=== PATIENT | female | born 1955 | race Caucasian/White ===

== ENCOUNTER 2021-11-17 06:34 | Observation (INO) ==
--- NOTE | 2021-11-02 10:13 | PAT Medication Instructions ---
Medication Instructions Date of Service November 02, 2021 Home Medications albuterol sulfate 90 mcg/actuation breath activated powder inhaler,sensor 2 inh inhalation QAM PRN shortness of breath, allergies cetirizine 10 mg tablet (Zyrtec) 10 mg PO QAM cholecalciferol (vitamin D3) 10 mcg (400 unit) tablet (Vitamin D3) 10 mcg PO QAM fluticasone 250 mcg-salmeterol 50 mcg/dose blistr powdr for inhalation (Wixela Inhub) 1 inh inhalation QAM PRN allergy related asthma losartan 50 mg tablet 50 mg PO QAM pantoprazole 40 mg tablet,delayed release 40 mg PO QAM DO NOT take the morning of surgery cetirizine 10 mg tablet (Zyrtec) 10 mg PO QAM cholecalciferol (vitamin D3) 10 mcg (400 unit) tablet (Vitamin D3) 10 mcg PO QAM losartan 50 mg tablet 50 mg PO QAM Take morning of surgery With a small sip of water, OTHERWISE NOTHING TO EAT OR DRINK AFTER MIDNIGHT: albuterol sulfate 90 mcg/actuation breath activated powder inhaler,sensor 2 inh inhalation QAM PRN shortness of breath, allergies (use if needed; please bring rescue inhaler with you to hospital day of surgery if possible) fluticasone 250 mcg-salmeterol 50 mcg/dose blistr powdr for inhalation (Wixela Inhub) 1 inh inhalation QAM PRN allergy related asthma (if needed) pantoprazole 40 mg tablet,delayed release 40 mg PO QAM Take evening before surgery albuterol sulfate 90 mcg/actuation breath activated powder inhaler,sensor 2 inh inhalation QAM PRN shortness of breath, allergies (if needed) Other Notes If you have any questions please call us at [phone] or [phone] or [phone] or [phone]
--- NOTE | 2021-11-03 13:01 | Anesthesiology Consultation ---
Date of Service November 03, 2021 Assessment & Plan (1) Encounter for pre-operative examination: - COVID screening: Per assessment on 11/03/2021: Travel screen negative, no known COVID-19 positive contacts or current COVID-19 related symptoms in past 2 weeks. Pt vaccinated. Surgeon arranging preop COVID testing, scheduled 11/15/2021. Awaiting results. Chart Review Chart Review: Acceptable Risk for Surgery and Patient seen in Pre Admission Testing Teaching & Discussion Pre-Anesthesia Teaching/Discussion Notes: Instructed NPO after midnight before surgery, except medications with 15 cc of water. Medication instructions provided according to the PAT guidelines. History Surgery Operation Date: 11/17/21 09:10 Proposed Procedures p Left Total Knee Replacement - Reji Mcelroy MD Height/Weight Height: 5 ft 5 in Weight: 113.1 kg Allergies Allergy/AdvReac Type Severity Reaction Status Date / Time adhesive Allergy Intermediate skin Verified 11/02/21 08:56 irritation, rash Penicillins Allergy Intermediate Rash Verified 11/02/21 08:56 erythromycin base Allergy Mild Gastrointestinal Verified 11/02/21 08:56 Upset Medications Home Medications Medication Instructions Recorded Confirmed Last Taken albuterol sulfate 90 mcg/actuation 2 inh inhalation QAM PRN shortness 11/02/21 11/02/21 Unknown breath activated powder of breath, allergies inhaler,sensor cetirizine 10 mg tablet (Zyrtec) 10 mg PO QAM 11/02/21 11/02/21 Unknown cholecalciferol (vitamin D3) 10 10 mcg PO QAM 11/02/21 11/02/21 Unknown mcg (400 unit) tablet (Vitamin D3) fluticasone 250 mcg-salmeterol 50 1 inh inhalation QAM PRN allergy 11/02/21 11/02/21 Unknown mcg/dose blistr powdr for related asthma inhalation (Wixela Inhub) losartan 50 mg tablet 50 mg PO QAM 11/02/21 11/02/21 Unknown pantoprazole 40 mg tablet,delayed 40 mg PO QAM 11/02/21 11/02/21 Unknown release Past Medical History Medical History (Updated 11/03/21 @ 13:51 by Trista Haider PA-C) Asthma "allergy related, prn inhalers"-last rescue inhaler use past few days; resolved Degenerative joint disease GERD (gastroesophageal reflux disease) controlled, stable per pt Hiatal hernia History of anesthesia reaction "a long time ago, I used to get nausea after, but haven't had it with any recent surgeries" denies needing scop patch in past History of blood transfusion with tubal Hypertension controlled, stable per pt; (pt reports chronic white coat hypertension, BP often 130s systolically) Migraine "ocular migraines lately"; most recent 2 weeks ago; denies change or worsening Sleep apnea cpap-compliant Patient denies h/o stroke, seizures, heart attack, heart failure, DM, blood clots or blood transfusions. Exercise / Class Metabolic Activity II 4-5 Yardwork/Stairs/Walk up hill (occ SOB if significant pain, otherwise denies any SOB or chest discomfort with 1 FOS) Past Surgical History Surgical History History of dilatation and curettage History of esophagogastroduodenoscopy (EGD) Hx of cholecystectomy "tried lapaproscopic, ended up opening with a small incision" Hx of colonoscopy Hx of laparoscopy x2; ectopic -removal fallop. tube, 6 mos later, tubal ligation Past Anesthesia History No Hx of Anesthesia Complications and No Family Hx of Anesthesia Complications History of PONV No Hx of Motion Sickness and History of PONV Social History Smoking Status: Never smoker Do You Dip or Chew Tobacco: No Hx Alcohol Use: Yes Alcohol type: beer alcohol intake frequency: holidays/special occasions only Hx Substance Use: No substance use type: does not use Review of Systems Patient denies chest pain, shortness of breath, dyspnea on exertion, fever, chills, cough, wheezing, or palpitations. Physical Exam Vital Signs Vitals BP 160/84 (pt reports chronic white coat hypertension, BP often 130s systolically) P 71 TEMP 98.4 SP02 98% on RA RESP 17 Physical Full cervical extension range of motion without pain TMD 3.5 finger breadths Mallampati Score 3 Dentition: intact, several crowns-one right upper front; denies chipped or loose teeth, implants or bridges Lungs: normal respiratory effort. Clear throughout to auscultation, no adventitious breath sounds Cardiac: regular rate and rhythm, no murmurs noted Carotid arteries: negative bruit bilat Lab Results Anesthesia Preop Results Results Anesthesia Widget: WBC 6.61 K/ul (4.8-10.8) 11/03/21 Hgb 13.5 g/dl (12.0-16.0) 11/03/21 Hct 42.0 % (34.1-44.9) 11/03/21 Plt 246 K/uL (130-400) 11/03/21 Na 140 mmol/L (136-145) 11/03/21 K 4.3 mmol/L (3.5-5.1) 11/03/21 Cl 105 mmol/L (98-107) 11/03/21 CO2 29 mmol/L (21-32) 11/03/21 BUN 14 mg/dl (6-23) 11/03/21 Creat 0.96 mg/dl (0.6-1.2) 11/03/21 Glucose Level 94 mg/dl (70-99(Fasting)) 11/03/21 PT 10.3 Seconds (9.0-12.0) 11/03/21 PTT 24.8 Seconds (21.0-31.0) 11/03/21 INR 1.0 (0.9-1.1) 11/03/21 Blood Type A Positive 11/03/21 Antibody Screen NEGATIVE 11/03/21 Testing Electrocardiogram Date: 11/03/21 NSR, rate 66 bpm Chest X-Ray Date: 11/03/21 No acute cardiopulmonary disease.
[~2021-11-17 06:34] MED LIST: ACETAMINOPHEN 500 MG TAB PO SCH; BUPIVACAINE 0.5 % 5 MG/1 ML PF 10ML VIAL ONE; BUPIVACAINE LIPOSOME/PF 266 MG, BUPIVACAINE/EPINEPHRINE 50 ML, SODIUM CHLORIDE 0.9% 30 ... INFIL SCH; CeleBREX 200 MG CAP PO SCH; FAMOTIDINE 20 MG TAB PO SCH; LR 500ML BOLUS, THEN 15ML/HR IV SCH; LR 60ML/HR IV SCH; METOCLOPRAMIDE HCL 10 MG TABLET PO SCH; ROPIVACAINE 0.5% 5 MG/ML 30 ML VIAL ONE; Scopolamine 1 MG TDSY TD SCH; TRANEXAMIC ACID 1,000 MG **IV Pre-op IV SCH; ceFAZolin 2000MG 2,000 MG/15 ML SYR IV SCH
--- NOTE | 2021-11-17 07:00 | History & Physical Bridge Note ---
Date of Service November 17, 2021 History & Physical Bridge Note I have examined the patient, reviewed the History & Physical and in the interval since the performance of the History & Physical I have noted the following changes of clinical significance: no changes noted
[2021-11-17] MEDS ORDERED: MIDAZOLAM HCL 1 MG/ML 2ML VIAL ONE ×2 (07:39)
[2021-11-17] MEDS ORDERED: fentaNYL citrate 100 MCG/2 ML VIAL ONE (07:39)
[2021-11-17] MEDS ORDERED: ePHEDrine sulfate 50 MG/ML AMP IV PRN (07:57)
[2021-11-17] MEDS ORDERED: ONDANSETRON INJ 2 MG/ML 2 ML VIAL IV PRN ×2 (07:57→11:17)
[2021-11-17] MEDS ORDERED: PROMETHAZINE HCL 6.25 MG in SODIUM CHLORIDE 0.9% 50 ML IV PRN (07:57)
[2021-11-17] MEDS ORDERED: ATROPINE SULFATE 0.1 MG/ML 10ML SYR IV PRN (07:57)
[2021-11-17] MEDS ORDERED: KETOROLAC 30 MG/ML VIAL IV PRN (07:57)
[2021-11-17] MEDS ORDERED: HYDROmorphone INJ 1 MG/ML SYRINGE IV PRN (07:57)
[2021-11-17] MEDS ORDERED: BUPIVACAINE LIPOSOME 1.3% 266 MG/20 ML VIAL ONE (08:11)
[2021-11-17] MEDS ORDERED: SODIUM CHLORIDE 0.9% PF 50 ML VIAL ONE (08:11)
[2021-11-17] MEDS ORDERED: BUPIVACAINE/EPINEPHRINE 0.25% 1:200,000 30 ML VIAL ONE (08:11)
[2021-11-17] MEDS ORDERED: DEXAMETHASONE SOD INJ 4 MG/ML VIAL ONE (08:41)
[2021-11-17] MEDS ORDERED: ONDANSETRON INJ 2 MG/ML 2 ML VIAL ONE (08:41)
[2021-11-17] MEDS ORDERED: PROPOFOL IV EMULSION 10 MG/ML 20 ML VIAL IV ONE ×3 (08:41→09:29)
[2021-11-17] MEDS ORDERED: LIDOCAINE 2% MPF LOCAL 5 ML VIAL INFIL ONE (08:41)
--- NOTE | 2021-11-17 10:32 | Operative Report ---
PG Post Operative Report Pre & Post Diagnosis Operation Date: 11/17/21 08:10 Pre-Op Diagnosis: Left Knee Osteoarthritis Post-Op Diagnosis: Left Knee Osteoarthritis I identified the patient and participated in the time-out.: Yes Procedure Operation Date: 11/17/21 08:10 Actual Procedures p Left Total Knee Arthroplasty, Cemented(Left) - Reji Mcelroy MD Surgeon Reji Mcelroy MD [employer] Khari Johnson PA-C Estimated Blood Loss 50 Findings Consistent with Post-Op Diagnosis Operative findings were advanced left knee DJD. Extensive grade 4 [id number] disease the medial compartment with eburnation medial femoral condyle medial tibial plateau. She had some spotty grade 4 changes of the patellofemoral joint as well as the lateral compartment. Specimens Left knee sent for pathology Drains None Anesthesia Type Spinal MAC Complications none Disposition Accompanied Patient To Recovery: No Indications Patient is a 66-year-old female has a long history of left knee pain discomfort describes gotten worse over time. Does a history of knee arthroscopy several years ago done and the locking of an area. Provided very temporary relief. She been through extensive conservative treatment over the years which have become less successful. She elected proceed with left total knee arthroplasty. Description of Procedure Operative implants consist of: 1 Biomet Vanguard size 65 left posterior stabilized femoral component. 2. Biomet size 71 tibial tray. 3. 10 mm posterior stabilized polyethylene insert. 4. 31 x 8 all Paller patella. The patient was taken to the operating, identified, placed on the operating table supine position protectors were properly padded. IV antibiotics tried by anesthesia team. A spinal anesthetic and abductor canal block had provided holding area. Tucker catheter was placed in sterile fashion. Left atrium was then placed in the left lower extremities and prepped and draped in usual sterile fashion. Left leg was elevated exsanguinated with use of an Esmarch in terms playset 300 mmHg. An anterior posterior left knee was then performed to longitudinal incision centered over the patella. Sharp dissection was carried through subcutaneous tissue down the extensor mechanism. A medial parapatellar arthrotomy incision was made. Some subperiosteal dissection was carried out medially. The fat pad was dissected from Neath patella tendon. The lateral patellofemoral ligament was released. Patella subluxated laterally and the knee was flexed. The osteophytes were taken off distal femur. ACL and PCL then released from distal femur the tibia subluxated anteriorly. The external tibial alignment jig was then placed in the interface the tibia and adjusted 14 mm medially. Proximal tibial cut was removed approximately 2 mm of bone from most deficient aspect medial tibial plateau. Some osteophytes taken off posterior medially. Tibia sized to a size 71. Attention drawn the femur. The distal femur stem with a sharp drop with intramedullary canal was suction. A left 5 degree valgus cutting guide was placed. Distal femoral cutting block was pinned in place. Distal femoral cut was made to take an additional 3 mm of bone off distal femur. The femur was then sized to a size 65. The AP cutting block was pinned parallel to the epicondylar axis which was 4 degrees of external rotation. Anterior cut, anterior chamfer, posterior cut, posterior chamfer cuts were made. The box cutting guide was placed in just slight lateral box cut was made. The knee was flexed. The remnants of the medial and lateral menisci were excised. The osteophytes taken off the posterior aspect the femur. Trial femoral component was placed. The tibial tray was pinned in maximum external rotation and the drill and stem punch were used to create defect in proximal to tibia for the tibial tray. Knee was then trialed and the 10 mm insert fit most appropriately. Attention drawn the patella. The patella was cleaned of all soft tissue. Patella thickness measured 20 mm in thickness was cut down to 13. Was sized to a size 31 patella. The lug holes were drilled for 31 patella. The lateral osteophyte was removed. Patella was placed and the knee was taken through range of motion and. The patella tracked nicely with no thumbs test. Attention drawn to placing permanent components. Nupathe all trial components were removed. Bone plug was placed into the distal femur limit blood loss. A double batch Palacos G cement was mixed. Biomet Vanguard size 65 left posterior stabilized femoral component, size 71 tibial tray, a 10 mm posterior stabilized polyethylene insert, and a 31 x 8 all Paller patella then cemented in place. New spreadout into full extension until cement hardened. Final cement check was then performed. Pericapsular tissues were injected with total 100 cc of combination of 20 cc of Exparel, 30 cc normal saline, 50 cc of quarter percent Marcaine with epinephrine. Patient did receive 1 g tranexamic acid. The tourniquet was let down for final tourniquet time 59 minutes. Hemostasis reduced electrocautery. Extensor mechanism then closed with combination 1 PDS suture #1 Vicryl suture in joiuuh-yy-yyeid fashion to extensor mechanism checked found to be intact and subcutaneous tissues then closed with 2 Dexon suture in a buried interrupted fashion skin was closed skin jeremiah. Leg was then cleaned and dried a sterile dressing both Xeroform, 4 x 4's, sterile cast padding, Yasmany bandage were applied. Patient then transferred to the recovery room in stable condition. The patient tolerated the procedure well and there were no complications. Khari Johnson, my physician assistant chief of police, was present for the entire procedure. His assistance was essential and required for appropriate patient positioning, prepping and draping, surgical exposure, performing the technical details of the operation, placement the implants, closure of the wound, and placement of the sterile bandage. I attest to the content of the Intraoperative Record and any orders documented therein. Any exceptions are noted below.
[2021-11-17] MEDS ORDERED: HYDROmorphone INJ 0.5 MG/0.5 ML SYR IV PRN (11:17)
[2021-11-17] MEDS ORDERED: NALOXONE HCL 0.4 MG/1 ML VIAL/CARP IV PRN (11:17)
[2021-11-17] MEDS ORDERED: METOCLOPRAMIDE HCL INJ 5 MG/ML 2 ML VIAL IV PRN (11:17)
[2021-11-17] MEDS ORDERED: bisacodyL 10 MG SUPP PR PRN (11:17)
[2021-11-17] MEDS ORDERED: ALUMINUM/MAGNESIUM SUSP 30 ML UDC PO PRN (11:17)
[2021-11-17] MEDS ORDERED: MAGNESIUM HYDROXIDE SUSP 30 ML UDC PO PRN (11:17)
--- NOTE | 2021-11-17 11:35 | XRay Report ---
XR knee LT 1 or 2V routine CLINICAL HISTORY: Surgical Post Op TECHNIQUE: 2 views of the left knee were obtained. Comparison: None available at the time of this dictation. FINDINGS: Patient is status post total knee arthroplasty with expected postsurgical changes including soft tiss ue swelling and subcutaneous emphysema. No periarticular lucency or hardware fracture is seen. IMPRESSION: No evidence of acute osseous injury. ACT 112: Negative or not required by law. Electronically signed by: Stevie Poole M.D. 11/17/2021 11:34 AM
[2021-11-17] MEDS ORDERED: ALBUTEROL HFA 8 GM INHALER INH PRN (11:40)
--- NOTE | 2021-11-17 11:45 | Anesthesiology Progress Note ---
Date of Service November 17, 2021 Anesthesia Post Procedure Vital Signs Vital Signs: Temp Pulse Pulse Resp BP Pulse Ox O2 Del Method 11/17/21 11:30 75 20 135/71 94 Room Air 11/17/21 11:15 67 20 136/78 95 Room Air 11/17/21 11:05 36.6 C 63 17 133/78 97 Room Air 11/17/21 10:55 66 16 125/78 98 Room Air 11/17/21 10:45 72 20 135/69 97 Oxymask 11/17/21 10:35 71 18 129/62 98 Oxymask 11/17/21 10:25 36.7 C 76 16 118/62 98 Oxymask 11/17/21 07:08 36.5 C 76 20 182/82 H 98 11/17/21 06:57 Room Air O2 Flow Rate 11/17/21 11:30 11/17/21 11:15 11/17/21 11:05 11/17/21 10:55 11/17/21 10:45 5 11/17/21 10:35 9 11/17/21 10:25 9 11/17/21 07:08 11/17/21 06:57 Transfer of Care Handoff Completed per policy Notes Mental Status: alert / awake / arousable Patient Amnestic to Procedure: Yes Nausea / Vomiting: adequately controlled Pain: adequately controlled Airway Patency, RR, SpO2: stable & adequate BP & HR: stable & adequate Hydration State: stable & adequate Anesthetic Complications: no major complications apparent
[2021-11-17] MEDS: SODIUM CHLORIDE 0.9% 1000ML 1,000 ML IV SCH (12:56)
[2021-11-17] MEDS ORDERED: FLUTICASONE/VILANTEROL 200/25MCG 14 PUFFS/INHALER INH PRN (13:50)
[2021-11-17] MEDS: ACETAMINOPHEN 500 MG TAB PO SCH ×2 (13:52→21:25)
[2021-11-17] MEDS: Scopolamine CHECK PATCH PLACEMENT SCH (15:19)
[2021-11-17] MEDS: oxyCODONE HCL IR 5 MG TAB (IMMEDIATE RELEASE) PO PRN (15:20)
[2021-11-17] MEDS ORDERED: TRANEXAMIC ACID / 0.7% NACL 1,000 MG/100 ML BAG IV SCH (16:30)
[2021-11-17] MEDS: ASCORBIC ACID 500 MG TAB PO SCH (16:51)
[2021-11-17] MEDS: ceFAZolin 2000MG 2,000 MG/15 ML SYR IV SCH (16:51)
[2021-11-17] MEDS: KETOROLAC TROMETHAMINE 15 MG/ML VIAL IV SCH (17:48)
[2021-11-17] MEDS: TAPENTADOL HCL ER 50 MG TABCR PO SCH (20:19)
[2021-11-17] MEDS: DOCUSATE SODIUM 100 MG CAP PO SCH (20:21)
[2021-11-17] MEDS: ASPIRIN 81 MG ECTAB PO SCH (20:21)
[2021-11-17] MEDS ORDERED: SENNA 8.6 MG TAB PO SCH (21:00)
[2021-11-18] MEDS: SODIUM CHLORIDE 0.9% 1000ML 1,000 ML IV SCH (00:23)
[2021-11-18] MEDS: ceFAZolin 2000MG 2,000 MG/15 ML SYR IV SCH (00:28)
[2021-11-18] MEDS: Scopolamine CHECK PATCH PLACEMENT SCH ×2 (00:28→08:38)
[2021-11-18] MEDS: KETOROLAC TROMETHAMINE 15 MG/ML VIAL IV SCH ×3 (00:29→12:09)
[2021-11-18] MEDS: ACETAMINOPHEN 500 MG TAB PO SCH (05:21)
[2021-11-18] MEDS: oxyCODONE HCL IR 5 MG TAB (IMMEDIATE RELEASE) PO PRN (06:00)
[2021-11-18 06:23] LABS: Hematocrit (blood only) 36.8 % (34.1-44.9); Hemoglobin 11.8 g/dl (12.0-16.0); Mean Corpuscular Hgb Conc 32.1 g/dL (32.0-36.0); Mean Corpuscular Volume 87.4 fL (80.0-100.0); Mean Platelet Volume 9.8 fL (9.4-12.3); Platelet Count 239 K/uL (130-400); RDW Coefficient of Variation 13.3 % (11.5-14.5); Red Blood Count 4.21 M/uL (3.93-5.22); White Blood Count 12.01 K/ul (4.8-10.8)
[2021-11-18 06:57] LABS: BUN Creatinine Ratio 19.4 (10-20); Calcium 8.7 mg/dl (8.5-10.1); Creatinine Clr Calc Pharmacy 73.3 ml/min; Est GFR (African American) 65.1 ml/min; Est GFR (Non-African American) 56.2 ml/min; Potassium 4.3 mmol/L (3.5-5.1)
[2021-11-18] MEDS ORDERED: dexAMETHasone 10 MG in SYRINGE 0 ML IV SCH (08:00)
--- NOTE | 2021-11-18 08:02 | Progress Notes ---
DATE OF SERVICE: 11/18/2021. SUBJECTIVE: A 66-year-old female, postoperative day 1 from the left total knee replacement. She is doing pretty well. Really did not get much sleep last night. Pain has been reasonably controlled. No chest pain or shortness of breath. Not feeling dizzy or lightheaded. OBJECTIVE: VITAL SIGNS: Temperature 36.5. Vital signs are stable. PHYSICAL EXAMINATION: GENERAL: Shows a pleasant middle-aged female. She is sitting up in bed and looks pretty comfortable . LUNGS: Clear to auscultation. HEART: Regular rate and rhythm. ABDOMEN: Soft, nontender, nondistended. EXTREMITIES: Grossly neurovascularly intact, except as follows: Examination of the left leg reveals the dressing to be clean, dry and intact. Leg is well aligned. She can dorsiflex and plantarflex her foot appropriately. She is neurologically intact. LABORATORY DATA: Hemoglobin 11.8. Hematocrit 36.8. Electrolytes are stable. ASSESSMENT: A 66-year-old female, postoperative day 1 from left knee replacement, doing reasonably w ell. She is hoping to get out of the hospital. Pain is controlled. She is neurologically intact. PLAN: 1. DVT prophylaxis includes thigh-high TEDs, SCDs, and aspirin twice a day. 2. PT, OT, weightbear as tolerated. Left total knee protocol. 3. Pain control, doing okay with current pain regimen. 4. Disposition: Plan to discharge to home with some home health once adequately recovered and getti ng around safely. Job ID: [id number]
[2021-11-18] MEDS: DOCUSATE SODIUM 100 MG CAP PO SCH (08:39)
[2021-11-18] MEDS: ASPIRIN 81 MG ECTAB PO SCH (08:39)
[2021-11-18] MEDS: ASCORBIC ACID 500 MG TAB PO SCH (08:39)
[2021-11-18] MEDS: TAPENTADOL HCL ER 50 MG TABCR PO SCH (08:44)
[2021-11-18] MEDS ORDERED: CETIRIZINE HCL 10 MG TABLET PO SCH (09:00)
[2021-11-18] MEDS ORDERED: CHOLECALCIFEROL 400 UNITS 10 MCG TAB PO SCH (09:00)
[2021-11-18] MEDS ORDERED: MULTIVITAMIN TAB PO SCH (09:00)
[2021-11-18] MEDS ORDERED: LOSARTAN POTASSIUM 50 MG TAB PO SCH (09:00)
--- NOTE | 2021-11-21 12:16 | Discharge Summary ---
Date of Service November 21, 2021 Discharge Data Procedures Performed Operation Date: 11/17/21 08:10 Actual Procedures p Left Total Knee Arthroplasty, Cemented(Left) - Reji Mcelroy MD Hospital Course (1) Status post total left knee replacement: This is a 66 year old patient admitted on 11/17/21 and underwent total knee arthroplasty. She tolerated the procedure well and there were no complications. Transferred to the PACU post op and later to the orthopedic floor for further care. She was given ancef for antibiotic prophylaxis. She was also given QI stockings, SCDs, and aspirin for DVT prophylaxis. Hemoglobin, hematocrit, and vital signs were monitored during her hospital stay and remained stable. Did not require any blood transfusions. There were no complications during her hospital stay. By post op day #1 the patient was tolerating a regular diet, pain was reasonably controlled with oral pain medicine, and she was participating in physical therapy. On post op day #1 the patient was discharged home and set up with home health care. She was given printed discharge instructions including prescriptions for extra strength tylenol, aspirin, toradol, zofran, senokot, and oxycodone. Continue physical therapy, weight bearing as tolerated. Continue QI stockings. Follow up approximately 2 weeks post op or sooner if there are problems or concerns. Coding Level of Care Code None Diagnoses Status post total left knee replacement Z96.652
== END 2021-11-18 13:15 | disposition home health service (06) ==
LOC: PACUINP 06:34 → ASU 06:34 → 3E 14:47

== ENCOUNTER 2023-07-14 05:08 | Observation (INO) ==
--- NOTE | 2023-06-08 12:21 | PAT Medication Instructions ---
Medication Instructions Date of Service June 08, 2023 Home Medications Medication Instructions Recorded Amina Xiao #1 ea 11/05/21 albuterol sulfate 90 mcg/actuation breath activated powder inhaler,sensor 2 inh inhalation QAM PRN shortness of breath, allergies cetirizine 10 mg tablet (Zyrtec) 10 mg PO QAM cholecalciferol (vitamin D3) 10 mcg (400 unit) tablet (Vitamin D3) 25 mcg PO QAM fluticasone 250 mcg-salmeterol 50 mcg/dose blistr powdr for inhalation (Wixela Inhub) 1 inh inhalation QAM PRN allergy related asthma losartan 50 mg tablet 50 mg PO QAM pantoprazole 40 mg tablet,delayed release 20 mg PO QAM acetaminophen 500 mg capsule 1,000 mg PO TID PRN Pain magnesium 200 mg tablet 200 mg PO QPM DO NOT take the morning of surgery cetirizine 10 mg tablet (Zyrtec) 10 mg PO QAM cholecalciferol (vitamin D3) 10 mcg (400 unit) tablet (Vitamin D3) 25 mcg PO QAM losartan 50 mg tablet 50 mg PO QAM Take morning of surgery With a small sip of water, OTHERWISE NOTHING TO EAT OR DRINK AFTER MIDNIGHT: albuterol sulfate 90 mcg/actuation breath activated powder inhaler,sensor 2 inh inhalation QAM PRN shortness of breath, allergies (use if needed; please bring rescue inhaler with you to hospital day of surgery if possible) fluticasone 250 mcg-salmeterol 50 mcg/dose blistr powdr for inhalation (Wixela Inhub) 1 inh inhalation QAM PRN allergy related asthma (if needed) pantoprazole 40 mg tablet,delayed release 20 mg PO QAM acetaminophen 500 mg capsule 1,000 mg PO TID PRN Pain (if needed) Take evening before surgery albuterol sulfate 90 mcg/actuation breath activated powder inhaler,sensor 2 inh inhalation QAM PRN shortness of breath, allergies (if needed) acetaminophen 500 mg capsule 1,000 mg PO TID PRN Pain (if needed) magnesium 200 mg tablet 200 mg PO QPM Other Notes If you have any questions please call us at [phone] or [phone] or [phone] or [phone]
--- NOTE | 2023-06-16 10:58 | Anesthesiology Consultation ---
Date of Service June 16, 2023 Assessment & Plan (1) Encounter for pre-operative examination: - Infectious disease screening: Per assessment on 06/16/23: No known infectious disease contacts or current infectious disease symptoms. No noted recent Covid positive test result. - Outpatient joint assessment: Pt currently scheduled for inpatient pathway. If surgeon requests review for outpatient joint pathway, patient is not recommended candidate for outpatient joint program from anesthesia standpoint based upon available information. - S/P Left TKA (11/17/21): SAB at L3-4 (x1 attempt) + regional at [facility] Chart Review Chart Review: Acceptable Risk for Surgery and Patient seen in Pre Admission Testing Teaching & Discussion Pre-Anesthesia Teaching/Discussion Notes: Instructed NPO after midnight before surgery,except medications with 15 cc of water. Medication instructions provided according to the PAT guidelines. History Surgery Operation Date: 07/14/23 07:00 Proposed Procedures p Right Total Knee Arthroplasty - Reji Mcelroy MD Height/Weight Height: 5 ft 6 in Weight: 119.4 kg Allergies Allergy/AdvReac Type Severity Reaction Status Date / Time adhesive Allergy Intermediate Skin Verified 06/14/23 11:55 irritation, rash Penicillins Allergy Intermediate Rash Verified 06/08/23 07:58 erythromycin base Allergy Mild Gastrointestinal Verified 06/08/23 07:58 Upset Medications Home Medications Medication Instructions Recorded Confirmed Last Taken albuterol sulfate 90 mcg/actuation 2 inh inhalation QAM PRN shortness 11/02/21 06/08/23 Unknown breath activated powder of breath, allergies inhaler,sensor cetirizine 10 mg tablet (Zyrtec) 10 mg PO QAM 11/02/21 06/08/23 11/16/21 06:30 cholecalciferol (vitamin D3) 10 25 mcg PO QAM 11/02/21 06/08/23 11/16/21 06:30 mcg (400 unit) tablet (Vitamin D3) fluticasone 250 mcg-salmeterol 50 1 inh inhalation QAM PRN allergy 11/02/21 06/08/23 11/17/21 04:00 mcg/dose blistr powdr for related asthma inhalation (Wixela Inhub) losartan 50 mg tablet 50 mg PO QAM 11/02/21 06/08/23 11/16/21 06:30 pantoprazole 40 mg tablet,delayed 20 mg PO QAM 0706/08/23 11/17/21 04:00 release Wheeled Walker #1 ea 11/05/21 03/10/22 Unknown acetaminophen 500 mg capsule 1,000 mg PO TID PRN Pain 06/08/23 06/08/23 Unknown magnesium 200 mg tablet 200 mg PO QPM 06/08/23 06/08/23 Unknown Past Medical History Medical History Asthma Degenerative joint disease GERD (gastroesophageal reflux disease) Hiatal hernia Hypertension Morbid obesity Sleep apnea CPAP (compliant) Exercise / Class Metabolic Activity III < 4 Walking/Shop/Light housework Past Surgical History Surgical History History of anesthesia reaction Post-op nausea with remote surgeries, no issues more recently History of arthroscopy of left knee 2014 History of dilatation and curettage History of esophagogastroduodenoscopy (EGD) Hx of cholecystectomy Hx of colonoscopy Hx of laparoscopy x2; ectopic -removal fallop. tube, 6 mos later, tubal ligation Hx of tubal ligation Status post total left knee replacement Left TKA (11/17/21): SAB at L3-4 (x1 attempt) + regional at [facility] Past Anesthesia History No Hx of Anesthesia Complications and No Family Hx of Anesthesia Complications History of PONV No Hx of Motion Sickness and History of PONV (Post-op nausea with remote surgeries, no issues more recently ) Social History Smoking Status: Never smoker Do You Dip or Chew Tobacco: No Hx Alcohol Use: Yes Alcohol type: beer alcohol intake frequency: a few times a week Hx Substance Use: No substance use type: does not use Review of Systems Patient denies chest pain, shortness of breath, dyspnea on exertion, fever, chills, cough, wheezing, palpitations. Physical Exam Vital Signs BP 152/72 P 67 TEMP 97.9 SP02 99%RA RESP 18 Physical Full cervical extension range of motion. Full TMJ range of motion. TMD 3.5 finger breaths Mallampati Score 3 Dentition: intact, + crowns (molars) Lungs: clear throughout to auscultation Cardiac: regular rate and rhythm, no murmurs noted Spine: normal Carotid arteries: negative bruit Extremities: no LE edema Short, thick neck Lab Results Anesthesia Preop Results Results Anesthesia Widget: WBC 6.84 K/ul (4.8-10.8) 06/16/23 Hgb 14.2 g/dl (12.0-16.0) 06/16/23 Hct 45.2 % (37.0-47.0) 06/16/23 Plt 271 K/uL (130-400) 06/16/23 Na 140 mmol/L (136-145) 06/16/23 K 4.5 mmol/L (3.5-5.1) 06/16/23 Cl 105 mmol/L (98-107) 06/16/23 CO2 30 mmol/L (21-32) 06/16/23 BUN 13 mg/dl (6-23) 06/16/23 Creat 0.80 mg/dl (0.6-1.2) 06/16/23 Glucose Level 85 mg/dl (70-99(Fasting)) 06/16/23 PT 10.1 Seconds (9.0-12.0) 06/16/23 PTT 26 Seconds (21-31) 06/16/23 INR 0.9 (0.9-1.1) 06/16/23 Blood Type A Positive 06/16/23 Antibody Screen NEGATIVE 06/16/23 Testing Electrocardiogram Date: 06/16/23 NSR at 72bpm. "Normal ECG" Chest X-Ray Date: 06/16/23 FINDINGS: Cardiac mediastinal and hilar silhouettes are within normal limits. Spondylitic spurring of the spine. Cholecystectomy. No pneumothorax, pleural effusion, airspace consolidation or pulmonary edema. IMPRESSION: No acute process.
[2023-07-14] MEDS: Scopolamine 1 MG TDSY TD SCH (05:55)
[2023-07-14] MEDS: LR 500ML BOLUS, THEN 15ML/HR IV SCH (05:55)
[2023-07-14] MEDS: ACETAMINOPHEN 500 MG TAB PO SCH ×2 (05:56→14:48)
[2023-07-14] MEDS: dexAMETHasone**PF** 10 MG/ML VIAL IV SCH (05:57)
[2023-07-14] MEDS: CeleBREX 200 MG CAP PO SCH (05:57)
[2023-07-14] MEDS: METOCLOPRAMIDE HCL 10 MG TABLET PO SCH (05:57)
[2023-07-14] MEDS: FAMOTIDINE 20 MG TAB PO SCH (05:57)
[2023-07-14] MEDS: LR 60ML/HR IV SCH (05:57)
[2023-07-14] MEDS ORDERED: ROPIVACAINE 0.5% 5 MG/ML 30 ML VIAL ONE (06:17)
[2023-07-14] MEDS ORDERED: BUPIVACAINE 0.5 % 5 MG/1 ML PF 10ML VIAL ONE (06:17)
[2023-07-14] MEDS ORDERED: PROPOFOL IV EMULSION 10 MG/ML 100 ML VIAL IV ONE (06:25)
[2023-07-14] MEDS ORDERED: ONDANSETRON INJ 2 MG/ML 2 ML VIAL ONE ×2 (06:27→06:31)
[2023-07-14] MEDS ORDERED: MIDAZOLAM HCL 1 MG/ML 2ML VIAL ONE (06:32)
[2023-07-14] MEDS ORDERED: fentaNYL citrate PF 100 MCG/2 ML VIAL ONE (06:32)
[2023-07-14] MEDS ORDERED: KETAMINE HCL INJ 50 MG/ML 10 ML VIAL ONE (06:37)
--- NOTE | 2023-07-14 06:49 | History & Physical Bridge Note ---
Date of Service July 14, 2023 History & Physical Bridge Note I have examined the patient, reviewed the History & Physical and in the interval since the performance of the History & Physical I have noted the following changes of clinical significance: no changes noted
[2023-07-14] MEDS: ceFAZolin 2000MG 2,000 MG/15 ML SYR IV SCH ×2 (07:05→14:48)
[2023-07-14] MEDS: ROPIV 0.5% 246mg, Ketorolac 30mg, EPINEPHrine 0.5mg in NSS INFIL SCH (07:56)
[2023-07-14] MEDS ORDERED: ACETAMINOPHEN 1000 MG/100 ML IV IV ONE (07:56)
[2023-07-14] MEDS ORDERED: ATROPINE SULFATE 0.1 MG/ML 10ML SYR IV PRN (08:39)
[2023-07-14] MEDS ORDERED: PROMETHAZINE HCL 6.25 MG in SODIUM CHLORIDE 0.9% 50 ML IV PRN (08:39)
[2023-07-14] MEDS ORDERED: HYDROmorphone INJ 2 MG/ML SYR/VIAL IV PRN (08:39)
[2023-07-14] MEDS ORDERED: ePHEDrine sulfate 50 MG/ML AMP IV PRN (08:39)
--- NOTE | 2023-07-14 09:07 | Operative Report ---
PG Post Operative Report Pre & Post Diagnosis Operation Date: 07/14/23 07:00 Pre-Op Diagnosis: Right Knee Degenerative Joint Disease Post-Op Diagnosis: Right Knee Degenerative Joint Disease I identified the patient and participated in the time-out.: Yes Procedure Operation Date: 07/14/23 07:00 Actual Procedures p Right Total Knee Arthroplasty(Right) - Reji Mcelroy MD Surgeon Reji Mcelroy MD Show Host Or Hostess Puneet Nascimento PA-C Estimated Blood Loss 50 Findings Consistent with Post-Op Diagnosis Operative findings reveal advanced right knee DJD. She had extensive grade 4 [id number] disease of the medial and patellofemoral compartments. She had a slight varus deformity to her knee. Moderate-sized knee joint effusion. Diffuse osteopenia. Specimens Right knee sent for pathology Anesthesia Type Spinal MAC Complications none Disposition Accompanied Patient To Recovery: No Indications Patient is a 67-year-old female is had a several year history of increasing bilateral knee pain discomfort is gradually gotten worse over time. She been through extensive conservative treatment which became less successful over time. She had her left knee replaced about a year and a half ago and is done well from this. She continued be limited by right knee pain. X-rays show advanced knee arthritis. She like to proceed with total knee arthroplasty. Description of Procedure Operative implants consist of: 1. Biomet Vanguard size 65 right Po stabilized femoral component. 2. Biomet size 71 tibial tray. 3. 10 mm post stabilized polyethylene insert. 4. 31 x 8 all poly patella. The patient was taken the operating, identified, placed on the operating table in the supine position but all contact areas were appropriately padded. IV antibiotics tried by anesthesia team. Spinal anesthetic and adductor canal block had been divided in the holding area. Tucker catheter was placed in sterile fashion. Right thigh tent was then placed. The right lower extremity was then prepped and draped in usual sterile fashion. The right leg was elevated and exsanguinated with use of an Esmarch and the tourniquet was placed at 300 mmHg. An anterior approach to the right knee was then performed to longitudinal incision centered over the patella. Sharp dissection was carried through subcutaneous tissue down the extensor mechanism. Medial parapatellar arthrotomy incision was made. Some subperiosteal dissection was carried out medially. The fat pad was dissected from Neath patella tendon. Lateral patellofemoral ligament was released. Patella subluxated laterally knee was flexed. The osteophytes taken on distal femur. ACL and PCL were then released from distal femur and the tibia subluxated anteriorly. The external treatment line jig was then placed in the interface the tibia and adjusted 14 mm medially. Proximal tibial cut was made remove about 2 mm of bone from the medial side. Tibia was sized to a size 71. Attention drawn the femur. The distal femur and the sharp drop with intramedullary canal was suction. Right 5 degree valgus cutting guide was placed. Distal femoral cutting block was pinned in place. Distal femoral cut was made to take an additional 3 mm of bone off distal femur. The femur was then sized to a size 65. The AP cutting block was pinned parallel to the epicondylar axis which was 4 degrees of external rotation. The anterior cut, anterior chamfer, posterior cut, posterior chamfer cuts were made. The box cutting guide was placed in just slight lateral and the box cut was made. The knee was flexed. The remnants of the medial and lateral menisci were excised. The osteophyte taken off the posterior aspect of the femur. A trial femoral component was placed. The tibial tray was pinned Jacqueline external rotation and the drill and stem punch were used to create defect in proximal tibia for the tibial tray. Knee was then trialed and the 10 mm insert fit most appropriately. Attention drawn the patella. The patella was cleaned of all soft tissue. Patella thickness measured 20 mm in thickness was cut down to 13. Was sized to a size 31 patella. The lug holes were drilled for 31 patella. The lateral osteophytes removed. Patella button was placed. Knee was taken through range of motion and the patella tracked nicely with no thumbs test. Attention drawn to placing permanent components. Nupathe all trial components were removed. Bone plug was placed in the distal femur limit blood loss. Double batch Palacos G cement was mixed. A Biomet Vanguard size 65 right Po stabilized femoral component, size 71 tibial tray, a 10 mm post stabilized polyethylene insert, and a 31 x 8 all poly patella then cemented in place. The knee was brought out into full extension till cement hardened. Final cement check was then performed. The pericapsular tissues were injected with a total of 100 cc of Ortho joint mix. The patient did receive 1 g tranexamic acid. The tourniquet was then let down for final tourniquet time 53 minutes. Hemostasis assured use electrocautery. Extensor Meclomen closed with combination 1 PDS suture #1 Vicryl suture in a [id number] fashion. Extensor Meclomen checked found to be intact. Subcutaneous tissues then closed with 2 Dexon suture in a buried interrupted fashion skin was closed skin jeremiah. Leg was then cleaned and dried and sterile dressing was Xeroform, 4 fours, sterile cast padding, Yasmany bandage were applied. Patient was then transferred to the recovery room in stable condition. The patient tolerated procedure well and there were no complications. Javier Nascimento, my physician cable splicer assistant, was present for the entire procedure. His assistance was required for proper patient positioning, prepping and draping, surgical exposure, retraction, perform the technical details of the operation, placement of the hardware, closure of the incision site and placement of sterile bandage. I attest to the content of the Intraoperative Record and any orders documented therein. Any exceptions are noted below.
--- NOTE | 2023-07-14 09:42 | XRay Report ---
XR knee RT 1 or 2V routine CLINICAL HISTORY: Postoperative evaluation. COMPARISON: Right knee radiographs June 30, 2023. FINDINGS: Alignment of the total right knee arthroplasty is anatomic. There is no periprosthetic fra cture or unexpected radiopaque foreign body. There are skin jeremiah. IMPRESSION: Expected findings following total right knee arthroplasty. ACT 112: Negative or not required by law. Electronically signed by: Brian Barrios M.D. 07/14/2023 9:41 AM
[2023-07-14] MEDS ORDERED: ONDANSETRON INJ 2 MG/ML 2 ML VIAL IV PRN (10:03)
[2023-07-14] MEDS ORDERED: ALUMINUM/MAGNESIUM SUSP 30 ML UDC PO PRN (10:03)
[2023-07-14] MEDS ORDERED: METOCLOPRAMIDE HCL INJ 5 MG/ML 2 ML VIAL IV PRN (10:03)
[2023-07-14] MEDS ORDERED: MAGNESIUM HYDROXIDE SUSP 30 ML UDC PO PRN (10:03)
[2023-07-14] MEDS ORDERED: bisacodyL 10 MG SUPP PR PRN (10:03)
[2023-07-14] MEDS ORDERED: HYDROmorphone INJ 0.5 MG/0.5 ML SYR IV PRN (10:03)
[2023-07-14] MEDS ORDERED: NALOXONE HCL 0.4 MG/1 ML VIAL/CARP IV PRN (10:03)
[2023-07-14] MEDS ORDERED: SENNA 8.6 MG TAB PO SCH (10:03)
[2023-07-14] MEDS ORDERED: ALBUTEROL HFA 8 GM INHALER INH PRN (10:17)
[2023-07-14] MEDS: TRANEXAMIC ACID 1,000 MG **IV Intra-op IV SCH (10:18)
[2023-07-14] MEDS: ORTHO JOINT ANESTHETIC ONE (10:19)
[2023-07-14] MEDS: SODIUM CHLORIDE 0.9% 1,000 ML IV SCH (10:21)
[2023-07-14] MEDS: CHOLECALCIFEROL 25 MCG (1000 UNITS) TAB PO SCH (10:34)
[2023-07-14] MEDS: CETIRIZINE HCL 10 MG TABLET PO SCH (10:34)
[2023-07-14] MEDS: LOSARTAN POTASSIUM 50 MG TAB PO SCH (10:34)
[2023-07-14] MEDS: MULTIVITAMIN TAB PO SCH (10:35)
[2023-07-14] MEDS: DOCUSATE SODIUM 100 MG CAP PO SCH (10:35)
[2023-07-14] MEDS: PANTOprazole 40 MG TAB PO SCH (10:35)
[2023-07-14] MEDS: ASPIRIN 81 MG ECTAB PO SCH (10:35)
[2023-07-14] MEDS: FLUTICASONE/VILANTEROL 200/25MCG 14 PUFFS/INHALER INH SCH (10:36)
[2023-07-14] MEDS: KETOROLAC TROMETHAMINE 15 MG/ML VIAL IV SCH (10:36)
--- NOTE | 2023-07-14 10:45 | Anesthesiology Progress Note ---
Date of Service July 14, 2023 Anesthesia Post Procedure Vital Signs Vital Signs: Temp Pulse Pulse Resp BP Pulse Ox O2 Del Method 07/14/23 10:30 36.7 C 80 18 157/86 H 94 Room Air 07/14/23 10:03 Room Air 07/14/23 10:03 36.5 C 78 18 128/82 95 Room Air 07/14/23 09:45 79 16 135/77 95 Room Air 07/14/23 09:35 76 12 133/80 94 Room Air 07/14/23 09:25 36.5 C 70 15 132/78 96 Room Air 07/14/23 09:15 77 19 126/70 93 Room Air 07/14/23 09:05 82 15 136/67 99 Oxymask 07/14/23 08:57 36.4 C L 81 16 134/74 96 Oxymask 07/14/23 05:40 36.8 C 80 22 144/79 H 96 Room Air O2 Flow Rate 07/14/23 10:30 07/14/23 10:03 07/14/23 10:03 07/14/23 09:45 07/14/23 09:35 07/14/23 09:25 07/14/23 09:15 07/14/23 09:05 9 07/14/23 08:57 9 07/14/23 05:40 Transfer of Care Handoff Completed per policy Notes Mental Status: alert / awake / arousable and participated in evaluation Nausea / Vomiting: adequately controlled Pain: adequately controlled Airway Patency, RR, SpO2: stable & adequate BP & HR: stable & adequate Hydration State: stable & adequate Neuraxial Anesthesia: was administered and sensory block is resolving Anesthetic Complications: no major complications apparent and Pt Satisfied with anesthetic care
[2023-07-14] MEDS: CHOLECALCIFEROL 10 MCG (400 UNITS) TAB PO SCH (10:53)
[2023-07-14] MEDS: oxyCODONE HCL IR 5 MG TAB (IMMEDIATE RELEASE) PO PRN (12:43)
[2023-07-14] MEDS: TRANEXAMIC ACID / 0.7% NACL 1,000 MG/100 ML BAG IV SCH (14:48)
[2023-07-14] MEDS: ASCORBIC ACID 500 MG TAB PO SCH (16:40)
[2023-07-14] MEDS: Scopolamine CHECK PATCH PLACEMENT SCH (16:43)
[2023-07-14] MEDS: SENNA 8.6 MG TAB PO SCH (20:39)
[2023-07-14] MEDS: MAGNESIUM OXIDE 400 MG TAB PO SCH (20:39)
[2023-07-15 06:10] LABS: Hematocrit (blood only) 35.9 % (37.0-47.0); Hemoglobin 11.9 g/dl (12.0-16.0); Mean Corpuscular Hemoglobin 28.7 pg (25.0-34.0); Mean Corpuscular Hgb Conc 33.1 g/dL (32.0-36.0); Mean Corpuscular Volume 86.5 fL (80.0-100.0); Mean Platelet Volume 9.6 fL (9.4-12.4); Platelet Count 236 K/uL (130-400); RDW Coefficient of Variation 13.5 % (11.5-14.5); RDW Standard Deviation 42.5 fL (36.4-46.3); Red Blood Count 4.15 M/uL (4.20-5.40); White Blood Count 14.78 K/ul (4.8-10.8)
[2023-07-15 06:26] LABS: BUN Creatinine Ratio 22.5 (10-20); Calcium 8.5 mg/dl (8.6-10.3); Creatinine Clr Calc Pharmacy 78.4 ml/min; Est GFR (African American) 77.2 ml/min; Est GFR (Non-African American) 66.6 ml/min; Potassium 4.6 mmol/L (3.5-5.1)
--- NOTE | 2023-07-15 07:35 | Surgery Progress Note ---
Date of Service July 15, 2023 Assessment & Plan (1) Status post right knee replacement: Plan: 67-year-old female postop day 1 from right knee replacement doing pretty well. Pain is controlled. She is neurologically intact. Plan: 1. DVT prophylaxis including thigh-high teds, SCDs, aspirin twice a day. 2. PT/OT. Weight-bear as tolerated. Right total knee protocol. 3. Pain control doing well with current pain regimen. 4. Disposition plan is to discharge to home with some home health. Will see how therapy goes today. Admission and Anticipated Discharge Date Admission Date: July 14, 2023 Subjective 67-year-old female postop day 1 from right knee replacement. She is doing pretty well. Some moderate knee pain but nothing unusual. No chest pain or shortness of breath. Not feeling dizzy or lightheaded. Physical Exam Physical Exam: Physical examination was a pleasant elderly female. As she is lying in bed looks pretty comfortable this morning. Examination the right leg reveals the incision to be clean dry and intact. Fairly minimal swelling. Can dorsiflex and plantarflex her foot appropriately. She is neurologically intact. Respiratory: normal respiratory effort, lungs clear to auscultation Cardiovascular: RRR, no murmur, no edema Gastrointestinal (Abdomen): normal bowel sounds, soft, nontender, no hepat osplenomegaly Results & Data Vital Signs (Past 12 Hours) Vital Signs Temp Pulse Resp BP Pulse Ox O2 Del Method 07/15/23 07:27 36.6 C 72 16 134/77 94 Room Air 07/15/23 04:12 36.6 C 69 14 114/72 95 Room Air 07/15/23 00:00 36.4 C L 68 14 116/72 96 Room Air 07/14/23 20:39 Room Air, CPAP 07/14/23 19:45 36.5 C 67 14 116/69 96 Room Air Laboratory Results Hemoglobin is 11.9. Hematocrit 35.9. Electrolytes are stable. PG Care Time/CCT Total # of Minutes Spent Total Time Spent with Patient: Total time spent is greater than 50% in coordination of care (as documented) at patient's floor/unit and/or counseling patient: Coding Level of Care Code None Diagnoses Status post right knee replacement Z96.651
[2023-07-15] MEDS: dexAMETHasone 10 MG in SYRINGE 0 ML IV SCH (08:47)
--- NOTE | 2023-07-17 12:34 | Discharge Summary ---
Date of Service July 15, 2023 Principal Diagnosis Same as "Discharge Diagnosis" noted below under Discharge Instructions. Discharge Exam Physical Exam: Physical examination was a pleasant elderly female. As she is lying in bed loo ks pretty comfortable this morning. Examination the right leg reveals the incision to be clean dry and intact. Fairly minimal swelling. Can dorsiflex and plantarflex her foot appropriately. She is neurologically intact. Respiratory: normal respiratory effort, lungs clear to auscultation Cardiovascular: RRR, no murmur, no edema Gastrointestinal (Abdomen): normal bowel sounds, soft, nontender, no hepatosplenomegaly Discharge Data Procedures Performed Operation Date: 07/14/23 07:00 Actual Procedures p Right Total Knee Arthroplasty(Right) - Reji Mcelroy MD Ordered Studies 07/14/23 05:00 US - OR guided needle placemen Routine Hospital Course (1) Status post right knee replacement: On July 14, [address] [address] at [facility] underwent a right total knee arthroplasty performed by Dr. Mcelroy with no complications. She had a spinal anesthetic. Postoperatively, she was started on aspirin for DVT prophylaxis and transferred to the general orthopedic floor in stable condition. Her hospital course was uneventful. On postoperative day #1, her vital signs were stable and her pain was well-controlled. She participated well with physical therapy working on ambulation and range of motion exercises. She was then discharged home in stable condition. She will follow-up with Dr. Mcelroy in 2 weeks for postoperative management. PG Care Time/CCT Total # of Minutes Spent Total Time Spent with Patient: Total time spent is greater than 50% in coordination of care (as documented) at patient's floor/unit and/or counseling patient: Discharge Plan Discharge Items Patient Disposition: Home - Home Health Services Reason For Visit: Right Knee Degenerative Joint Disease Discharge Diagnosis: Right Knee Replacement Activity: Per Instructions section Weightbearing: Full weightbearing Non-emergency contact: Surgeon Call non-emergency contact if: you have any medication questions Follow-up/Referrals: Celso Osorio PA-C [Primary Care Provider] - Diet: Regular Addtl Attending Provider Instructions: ACTIVITY RECOMMENDATIONS: Physical Therapy: * You will go to physical therapy three times each week for four to six weeks after your surgery in order to regain your knee range of motion and to retrain your knee to work properly. * It is just as important to make sure you are getting your knee perfectly straight as it is to regain your knee bend. * Taking a pain pill an hour before therapy can help you have a more productive and comfortable therapy session. Home Exercise: * You were shown a series of exercises (heel props, heel slides, etc.) in the hospital. Do these exercises three to four times each day including the exercises you were shown in physical therapy. Walking: * Get up and walk several times each day. For the first four weeks, try not to stand or walk for more than one hour at a time. If you do stand or walk for more than one hour, you will not hurt anything, but your knee and leg will likely swell. * As you feel comfortable, you may change from the walker or crutches to a cane and then to independent walking. MEDICATIONS: New Medicine: * You will likely be taking one or more of these medications: 1. Oxycodone - A quick and shorter-acting pain medication. Take one to two tablets every six hours to lessen your pain. 2. Aspirin - Thins your blood to lessen the chance of forming a blood clot. * The most common side effects of pain medicine and iron are nausea and constipation. If nausea or constipation is too much of a problem or if you have any questions about your new medicines or doses, call [facility] at . We will try to help you manage these issues. "VERY IMPORTANT TO READ AND REVIEW" Pain: * The immediate post-operative period after knee replacement surgery is often quite painful. * You are given a prescription for pain medicine. You should take it, as directed, when you need it, especially before physical therapy and before going to bed. Pain that interferes with sleep is very common and can last several months. * You will likely need pain medicine for the first four to six weeks. It will not stop all of the pain. The pain will lessen and as you feel better, you may change to milder pain medicine such as Tylenol. * The most common side effects of pain medicine are nausea and constipation, so don't take more than you need. SPECIAL CARE INSTRUCTIONS: TEDs/Elastic Stockings: * The white elastic stockings help limit swelling and prevent blood clots from forming in your legs. The more you wear them, the more they work. * Wear them for six weeks after knee replacement surgery and four weeks after partial knee replacement. Incision Site Care: * Remove dressing postoperative day 2 and then shower. Keep direct shower pressure off the incision site. * After showering, cover jeremiah with dry gauze and change daily or more frequently if the dressing is getting saturated with drainage. * Use the QI stockings to hold dressing in place. DO NOT apply tape on the skin. * May completely stop using bandage if wound is dry and no drainage * Jeremiah are removed between 2 and 3 weeks post-op. If your follow-up appointment is made before 2 weeks, please have your appointment re- scheduled. It is too early to remove the jeremiah. Prevention of Infection: * Take antibiotics one hour before any dental cleaning, dental work, urological procedure, gastrointestinal procedure or any invasive surgery in order to prevent your new joint from getting infected. * You may get the antibiotics from the doctor performing the procedure or you may call our office at [phone] before and we will call in a prescription to the pharmacy of your choice. Things to Watch For: * Drainage from the incision site that occurs more than one week after your surgery. * Severely increased knee/leg pain or swelling. * Increased redness at the incision site. * Fever above 102 degrees Fahrenheit. * Unusual chest pain or shortness of breath. * Unusual pain or burning with urination. Call [facility] at [phone] with any of the above problems or if you have any questions about your medicines or recovery. FOLLOW UP VISIT: Make an appointment to see your doctor for approximately two weeks after surgery for a progress check and staple removal by calling the office at [phone]. Pending Studies at Discharge: No Stand-Alone Forms: [facility] [email or web address], Smoking Cessation Medications and DC Order Prescriptions: Continued (DME) Wheeled Walker Misc See Rx Instructions .MEDSUPPLY Qty: 1 0RF Rx Instructions: As directed oxycodone 5 mg tablet 5 - 10 mg PO Q8H PRN (Reason: pain) Qty: 40 0RF Rx Instructions: Take as needed for pain ondansetron 4 mg tablet,disintegrating 4 mg PO Q8 PRN (Reason: nausea) Qty: 20 1RF Rx Instructions: Take as needed for nausea ketorolac 10 mg tablet 10 mg PO Q6 5 Days Qty: 20 0RF Rx Instructions: Take 4 times per day with food for 5 days to lessen pain and swelling. acetaminophen [Tylenol Extra Strength] 500 mg tablet 1,000 mg PO TID 30 Days Qty: 180 0RF Rx Instructions: Take 3 times per day to lessen pain. aspirin [Gladys Low Dose Aspirin] 81 mg tablet,delayed release (DR/EC) 81 mg PO BID 45 Days Qty: 90 0RF Rx Instructions: Take to prevent blood clots. cefadroxil 500 mg capsule 500 mg PO BID 7 Days Qty: 14 0RF Rx Instructions: Take 1 cap twice a day to prevent infection sennosides [Senokot] 8.6 mg tablet 8.6 mg PO BID 14 Days Qty: 28 0RF Rx Instructions: Take two times a day to prevent/treat constipation losartan 50 mg Tablet 50 mg PO QAM fluticasone propion-salmeterol [Wixela Inhub] 250-50 mcg/dose Blister With Device 1 inh INHALATION QAM PRN (Reason: allergy related asthma) cetirizine [Zyrtec] 10 mg Tablet 10 mg PO QAM pantoprazole [Protonix] 40 mg Tablet,Delayed Release (Dr/Ec) 20 mg PO QAM cholecalciferol (vitamin D3) [Vitamin D3] 10 mcg (400 unit) Tablet 25 mcg PO QAM albuterol sulfate 90 mcg/actuation Aero Powdr Breath Act W/Sensor 2 inh INHALATION QAM PRN (Reason: shortness of breath, allergies) magnesium 200 mg Tablet 200 mg PO QPM Admission Data Admit Date/Time: 07/14/23 09:00 Attending Provider: Reji Mcelroy Admit Provider: Reji Mcelroy Primary Care Provider: Celso Osorio Other Providers: [facility],Home Health Other Interventions: Discharge Summary Assessment (RN) Last Done: 07/15/23 10:52
== END 2023-07-15 11:21 | disposition home health service (06) ==
LOC: ASU 05:08 → 3E 05:08